=== PATIENT | female | born 1955 | race Caucasian/White ===

== ENCOUNTER → 2019-08-20 14:48 | Outpatient (BNVA) | payer SELFPAY | PROVIDERS: Family Provider Nurse Practitioner Family; PCP Nurse Practitioner Family; Visit Provider Nurse Practitioner Family | DX: R68.89 Other general symptoms and signs (principal); R10.819 Abdominal tenderness, unspecified site; R69 Illness, unspecified; R82.998 Other abnormal findings in urine | CPT/HCPCS: 80053; 81001; 85025; 87086; 87804 ==

== ENCOUNTER 2019-08-23 16:48 | Emergency (ER) | payer SELFPAY ==
[2019-08-23 17:12] VITALS: BP 163/94; PULSE 92; RESP 18; TEMP 37; O2SAT 96; BMI 36.0
--- NOTE | 2019-08-23 17:33 | ED_ITS ---
HPI - General Adult General: Chief complaint: General Medical Stated complaint: flu like symptoms Time Seen by Provider: 08/23/19 17:25 History of Present Illness: HPI narrative: Patient comes in complaining of diarrhea feeling dehydrated and that his symptoms got worse since she got started on Tamiflu. complaint: ge Onset (ago): day(s) Associated symptoms: Reports fevers/chills and vomiting; Deny chest pain, dyspnea, headache(s) or rash Review of Systems Const: Denies: fever, chills or body aches Eyes: Denies: change in vision or blurry vision ENMT: Denies: throat pain or nasal congestion Card: Denies: chest pain or shortness of breath on exertion Resp: Denies: shortness of breath, productive cough or non-productive cough GI: Reports: vomiting and diarrhea Musc: Denies: extremity pain Skin/Breast: Denies: rash Neuro: Denies: headache Psych: Denies: anxiety or depression Pardeep/Lymph: Denies: easy bruising PFSH ED PFSH: Family History (Updated 08/20/19 @ 14:59 by Silvia Vogt LPN) Other Cancer Heart disease Hypertension Social History (Updated 08/20/19 @ 14:43 by Silvia Vogt LPN) Smoking and tobacco status: never smoked Alcohol intake: never Housing: House Marital status: Number of children: 2 Highest education level completed: High School Graduate service: No Current occupational status: employed Current occupation: [employer] History of recent travel: No Physical Exam Const: COMMON NORMALS: no apparent distress, average body habitus and oriented x3 HENMT: COMMON NORMALS: normocephalic HEAD & SCALP: normal to inspection and normocephalic FACE & SINUS: normal facial exam Eye: COMMON NORMALS: conjunctivae normal GENERAL EYE: normal appearance of both eyes CONJUNCTIVA: Yes conjunctivae normal Neck/C-Spine: COMMON NORMALS: no JVD Chest: COMMONS NORMALS: inspection of chest normal Resp: COMMON NORMALS: normal respiratory effort and clear to auscultation bilaterally AUSCULTATION: clear to auscultation bilaterally Cardio: COMMON NORMALS: no JVD, regular rate and regular rhythm RATE: regular rate RHYTHM: regular rhythm GI: COMMON NORMALS: normal to inspection, nondistended, normoactive bowel sounds Extremity: COMMON NORMALS: normal to inspection and full ROM Neuro: COMMON NORMALS: oriented x3 Course Vital Signs: Vital signs: Vital Signs Temperature 98.6 F 08/23/19 17:12 Pulse Rate 92 08/23/19 17:12 Respiratory Rate 18 08/23/19 17:12 Blood Pressure 163/94 08/23/19 17:12 Pulse Oximetry 96 08/23/19 17:12 Discharge Plan Discharge Prescriptions: No Action citalopram 20 mg tablet 20 mg PO DAILY RF: 0 lovastatin 20 mg tablet 20 mg PO DAILY RF: 0 metoprolol tartrate 25 mg tablet 25 mg PO BID RF: 0 oseltamivir [Tamiflu] 75 mg capsule 75 mg PO BID 5 Days Qty: 10 RF: 0 Coding Level of Care Code ED Healthcare Management for Christopher Tadeo
--- NOTE | 2019-08-23 17:40 | PC.NURSE ---
pt given cool towell. pt room hot.
[2019-08-23 17:48] LABS: Basophils % 0.6 %; Eosinophils # 0.1 10^3/uL (0.0-0.8); Eosinophils % 1.9 %; Hematocrit 44.5 % (37.0-47.0); Hemoglobin 14.8 g/dL (11.5-15.3); Lymphocytes # 1.2 10^3/uL (0.8-4.8); Lymphocytes % 24.9 %; Mean Corpuscular HGB Conc 33.3 g/dL (30.0-36.0); Mean Corpuscular Hemoglobin 28.8 pg (28.0-34.0); Mean Corpuscular Volume 86.7 fL (81-99); Mean Platelet Volume 10.4 fL (7.4-10.4); Monocytes # 0.6 10^3/uL (0.2-0.9); Monocytes % 13.5 %; Neutrophils # 2.7 10^3/uL (1.8-7.7); Neutrophils % 58.9 %; Nucleated Red Blood Cells % 0 %; Platelet Count 213 10^3/cmm (130-400); Red Blood Count 5.13 10^6/uL (4.1-5.3); Red Cell Distribution Width 12.9 % (12.1-15.1); White Blood Count 4.7 10^3/uL (4.0-10.0)
[2019-08-23] MEDS: lactated ringers 500 ML 999 ML IV (18:00)
[2019-08-23 18:02] LABS: Alanine Aminotransferase 27 U/L (0-33); Albumin Level 4.4 g/dL (3.5-5.2); Alkaline Phosphatase 86 IU/L (35-105); Anion Gap 17.7 (5-19); Aspartate Amino Transferase 37 U/L (0-32); Blood Urea Nitrogen 24 mg/dL (8-23); Calcium 9.9 mg/dL (8.5-10.5); Carbon Dioxide 20 mmol/L (22-29); Chloride 102 mmol/L (98-107); Globulin 3.6 g/dL (1.3-4.6); Glomerular Filtration Rate 72.4 mL/min (90-130); Glucose 120 mg/dL (65-115); Lipase 131 U/L (13-60); Potassium 3.7 mmol/L (3.5-5.1); Sodium 136 mmol/L (136-145); Total Bilirubin 0.3 mg/dL (0.15-1.2)
[2019-08-23] MEDS: ondansetron 2 mg/ML SDV 2 mL 4 MG IVP (18:12)
[2019-08-23 18:51] LABS: Add Urine Microscopic? YES; Bilirubin Urine 1+ (NEGATIVE); Blood Urine 2+ (Negative); Glucose Urine UA Norm (Normal); Ketones Urine Negative (Negative); Leukocyte Esterase Urine Trace (Negative); Nitrate Urine Negative (Negative); Protein Urine 1+ (Negative); Specific Gravity, Urine 1.015 (1.005-1.030); Urine Appearance Hazy (CLEAR); Urine Color Yellow (Yellow); Urobilinogen Urine Norm (Negative); pH Urine 5 (5-7)
--- NOTE | 2019-08-23 18:51 | CTR_ITS ---
PROCEDURE INFORMATION: Exam: CT Abdomen And Pelvis With Contrast Exam date and time: 08/23/2019 6:55 PM Age: 64 years old Clinical indication: Nausea and vomiting; Abdominal pain; Generalized; Additional info: Diarrhea, high lipase TECHNIQUE: Imaging protocol: Computed tomography of the abdomen and pelvis with intravenous contrast. Total DLP: 1495.21 mGy-cm Radiation optimization: All CT scans at this facility use at least one of these dose optimization techniques: automated exposure control; mA and/or kV adjustment per patient size (includes targeted exams where dose is matched to clinical indication); or iterative reconstruction. Contrast material: OMNI 300; Contrast volume: 95 ml; Contrast route: IV; COMPARISON: CT [place]domen/[place] o [id number] 02/09/2013 3:03 PM FINDINGS: Mediastinum: Hiatal hernia with fluid filled thoracic esophagus. Liver: Normal. No mass. Gallbladder and bile ducts: Normal. No calcified stones. No ductal dilation. Pancreas: Normal. No ductal dilation. Spleen: Normal. No splenomegaly. Adrenals: Normal. No mass. Kidneys and ureters: Normal. No hydronephrosis. Stomach and bowel: Stomach is otherwise unremarkable. Duodenal diverticulum. Scattered fluid throughout the small bowel small non differential air-fluid levels. No obstruction. Multiple air-fluid levels in the proximal colon. No visible wall thickening. Diverticulosis of the distal colon. Appendix: The appendix is normal. Intraperitoneal space: Unremarkable. No free air. No significant fluid collection. Vasculature: Unremarkable. No abdominal aortic aneurysm. Lymph nodes: Unremarkable. No enlarged lymph nodes. Bladder: Unremarkable as visualized. Reproductive: Unremarkable as visualized. Bones/joints: Degenerative changes at L5-S1. No compression fracture. Soft tissues: Fat containing umbilical hernia. Fat containing right paraumbilical hernia. CT/CT abdomen pelvis w con* [id number] IMPRESSION: 1. Scattered air-fluid levels in the small bowel and proximal colon most likely represents enterocolitis. 2. Hiatal hernia with fluid-filled esophagus. This could represent stasis versus reflux. 3. Diverticulosis of the distal colon. Radiation Dose CTDIVOL = (mGy): DLP = 1495.21 (mGy-cm)
[2019-08-23 18:53] LABS: Bacteria Urine 2+; Mucus Urine 2+; RBC Urine 15-25 /hpf (0-2)
[2019-08-23 18:54] LABS: Add Urine Culture? Yes
[2019-08-23] MEDS: iohexol 300 mg/mL 100 mL Btl IV (18:57)
[2019-08-23] MEDS: metroNIDAZOLE 500 MG Tablet PO (19:15)
[2019-08-23] MEDS: loperamide 2 mg Capsule 4 MG PO (19:15)
[2019-08-23] MEDS: sodium chloride 0.9% 1,000 ML 999 ML IV (19:44)
[2019-08-23 20:26] VITALS: BP 148/96; PULSE 68; RESP 18; O2SAT 92
== END 2019-08-23 20:38 | disposition home or self-care (01) ==
PROVIDERS: Emergency Provider Nurse Practitioner Family; Family Provider Nurse Practitioner Family; PCP Nurse Practitioner Family
DX: R19.7 Diarrhea, unspecified (principal); R50.9 Fever, unspecified; R11.10 Vomiting, unspecified; I11.9 Hypertensive heart disease without heart failure
CPT/HCPCS: 74177; 80053; 81001; 83690; 85025; 87086; 96365; 96375; 99282; 99283; A9270; J2405; J7030; Q9967

== ENCOUNTER 2019-08-28 11:35 | Emergency (ER) | payer SELFPAY ==
[2019-08-28 12:05] VITALS: BP 139/89; PULSE 76; RESP 18; TEMP 36.7; O2SAT 97; BMI 37.8
[2019-08-28 12:10] LABS: Basophils % 0.4 %; Eosinophils # 0.2 10^3/uL (0.0-0.8); Eosinophils % 2.5 %; Hematocrit 43.3 % (37.0-47.0); Hemoglobin 14.2 g/dL (11.5-15.3); Lymphocytes # 1.9 10^3/uL (0.8-4.8); Lymphocytes % 22.9 %; Mean Corpuscular HGB Conc 32.8 g/dL (30.0-36.0); Mean Corpuscular Hemoglobin 28.2 pg (28.0-34.0); Mean Corpuscular Volume 85.9 fL (81-99); Mean Platelet Volume 10.2 fL (7.4-10.4); Monocytes # 0.7 10^3/uL (0.2-0.9); Monocytes % 8.3 %; Neutrophils # 5.3 10^3/uL (1.8-7.7); Neutrophils % 65.4 %; Nucleated Red Blood Cells % 0 %; Platelet Count 309 10^3/cmm (130-400); Red Blood Count 5.04 10^6/uL (4.1-5.3); Red Cell Distribution Width 12.7 % (12.1-15.1); White Blood Count 8.1 10^3/uL (4.0-10.0)
[2019-08-28 12:26] LABS: Alanine Aminotransferase 23 U/L (0-33); Albumin Level 3.9 g/dL (3.5-5.2); Alkaline Phosphatase 91 IU/L (35-105); Anion Gap 15.4 (5-19); Aspartate Amino Transferase 18 U/L (0-32); Blood Urea Nitrogen 9 mg/dL (8-23); Calcium 9.5 mg/dL (8.5-10.5); Carbon Dioxide 22 mmol/L (22-29); Chloride 103 mmol/L (98-107); Globulin 3.9 g/dL (1.3-4.6); Glucose 97 mg/dL (65-115); Lipase 39 U/L (13-60); Potassium 3.4 mmol/L (3.5-5.1); Sodium 137 mmol/L (136-145); Total Bilirubin 0.5 mg/dL (0.15-1.2); Total Protein 7.8 g/dL (6.6-8.7)
[2019-08-28 13:59] VITALS: RESP 18
[2019-08-28 14:10] VITALS: RESP 17
--- NOTE | 2019-08-28 14:15 | CT_ITS ---
WS: [id number] CT ABDOMEN PELVIS TECHNIQUE: Contrast-enhanced CT of the abdomen and pelvis with coronal and sagittal reformatted image s. CLINICAL INFORMATION: pain; diarrhea/vomiting COMPARISON: August 23, 2019 DLP: 1458.[address] scans at [facility] use at least one of these dose optimization techniques: automat ed exposure control; mA and/or kV adjustment per patient size (includes targeted exams where dose is matched to clinical indication); or iterative reconstruction. FINDINGS: Images in the midabdomen are degraded due to motion/breathing artifact. Since the prior examination i nterval development of thickening and inflammatory stranding involving the sigmoid colon consistent w ith acute diverticulitis. Associated mucosal enhancement. No drainable abscess or fluid collection. Remainder of the colon normal in appearance considering motion artifact. Scattered fluid in the julián l caliber small bowel. No evidence of high-grade obstruction. Previously described enteritis is impro jigar. Normal liver. Normal portal vein and splenic vein. Slightly prominent and otherwise unremarkable gall bladder. Small esophageal hiatal hernia. Normal spleen. Fatty atrophy of the pancreas. Small splenule . Fat-containing umbilical hernia. Lung bases are well aerated. Notified JENISE Gomez at 08/28/2019 4:[address]/CT abdomen pelvis w con* [id number] IMPRESSION: 1. Since the prior examination, interval development of acute uncomplicated si gmoid diverticulitis with inflammatory stranding and edema. No drainable absces s or fluid collection. 2. No evidence of small or large bowel obstruction. 3. Scattered fluid in normal caliber small bowel. Previously described enterit is as improved. 4. Small esophageal hiatal hernia. 5. Slightly hydropic gallbladder which is otherwise normal in appearance. 6. No hydronephrosis. Mild renal cortical atrophy. 7. Fat-containing umbilical hernia.
--- NOTE | 2019-08-28 14:18 | W.ED.NAVMDI ---
HPI - Nausea/Vomiting/Diarrhea General: Chief complaint: General Medical Stated complaint: N/V/D Time Seen by Provider: 08/28/19 13:52 Source: patient Mode of arrival: ambulatory Limitations: no limitations History of Present Illness: HPI Narrative: Patient is a 64-year-old female who presents to ED today with complaints of continued vomiting and diarrhea. Patient states she has had symptoms for approximately a week and a half now. She is complaining of approximately 15 watery stools daily as well as several episodes of vomiting. Patient has been seen twice for this already. She has not been running fevers. MD elicited complaint: nausea, vomiting, diarrhea and abdominal pain Description of vomiting: watery Description of diarrhea: watery Associated nausea: Yes Associated abdominal pain: Yes Location of pain: Diffuse Radiation: diffuse Pain consistency: constant Quality: cramping Exacerbating factors: eating Relieving factors: none Associated symtoms: Reports no associated symptoms and nausea; Denies chest pain, dysuria, headache(s) or syncope Review of Systems Const: Denies: fever, chills or body aches Card: Denies: chest pain, edema, lightheadedness, syncope or pre-syncope Resp: Denies: shortness of breath, productive cough, coughing up blood or chest congestion GI: Reports: abdominal pain, nausea, vomiting and diarrhea; Denies: vomiting blood, coffee grounds in vomit, heartburn/indigestion, painful bowel movements, rectal swelling, blood in stool, black tarry stool, white/light colored stool or fatty stool : Denies: flank pain, difficulty urinating, painful urination, urinary frequency or urinary urgency Musc: Denies: neck pain or back pain Skin/Breast: Denies: rash Neuro: Denies: headache, numbness in extremities, weakness in extremities or changes in sensation PFSH ED PFSH: Family History (Updated 08/20/19 @ 14:59 by Silvia Vogt LPN) Other Cancer Heart disease Hypertension Social History (Updated 08/20/19 @ 14:43 by Silvia Vogt LPN) Smoking and tobacco status: never smoked Alcohol intake: never Housing: House Marital status: Number of children: 2 Highest education level completed: High School Graduate service: No Current occupational status: employed Current occupation: [employer] History of recent travel: No Physical Exam Const: COMMON NORMALS: no apparent distress, oriented x3, no limitations, alert and well nourished NUTRITIONAL APPEARANCE: obese Resp: COMMON NORMALS: normal respiratory effort and clear to auscultation bilaterally AUSCULTATION: clear to auscultation bilaterally Cardio: COMMON NORMALS: regular rate and regular rhythm RATE: regular rate RHYTHM: regular rhythm GI: COMMON NORMALS: normal to inspection, nondistended, normoactive bowel sounds, soft to palpation, no hepatosplenomegaly and no masses PALPATION: Yes soft, Yes tender (mild diffusely ) and Yes no hepatosplenomegaly : COMMON NORMALS: Yes no CVA tenderness BLADDER/KIDNEY EXAM: Yes no CVA tenderness Back/Pelvis: COMMON NORMALS: no CVA tenderness Extremity: COMMON NORMALS: normal to inspection Neuro: COMMON NORMALS: oriented x3 SENSORIUM/ORIENTATION: Yes alert Skin: COMMON NORMALS: no rashes or lesions noted GENERAL SKIN EXAM: no rashes or lesions noted Course Vital Signs: Vital signs: Vital Signs Temperature 98.1 F 08/28/19 12:05 Pulse Rate 76 08/28/19 12:05 Respiratory Rate 17 08/28/19 14:10 Blood Pressure 139/89 08/28/19 12:05 Pulse Oximetry 97 08/28/19 12:05 MDM - Nausea/Vomiting/Diarrhea MDM Narrative: Medical decision making narrative: Patient clinically appears well. Labs at this time are non-concerning. She has very mild hypokalemia at 3.4-this was replaced with some oral potassium here. Patient is not hypotensive, tachycardic, or febrile. Stool samples were obtained here however the analyzer has been down for the past several hours and lab was contacted who does not feel this will be repaired in the next few hours so these will have to be followed up as an outpatient. CT scan today shows sigmoid diverticulitis-uncomplicated. Patient states she was prescribed Cipro and Flagyl upon her last visit but reports she has vomited 1-2 doses of this. She was not discharged with anything for nausea at home. Patient will be given IV doses of Cipro and Flagyl here. I will write her for another 5 days of these medications at home. Recommend she treat with Zofran prior to medication administration. She will need to return to the emergency department in 48 hours if she is still not able to hold down medications and or if pain is worsening. Lab Data: Labs: Lab Results 08/28/19 08/28/19 Range/Units 12:03 12:03 WBC 8.1 (4.0-10.0) 10^3/ uL RBC 5.04 (4.1-5.3) 10^6/u L Hgb 14.2 (11.5-15.3) g/dL Hct 43.3 (37.0-47.0) % MCV 85.9 (81-99) fL MCH 28.2 (28.0-34.0) pg MCHC 32.8 (30.0-36.0) g/dL RDW 12.7 (12.1-15.1) % Plt Count 309 (130-400) 10^3/c mm MPV 10.2 (7.4-10.4) fL Neut % (Auto) 65.4 % Lymph % (Auto) 22.9 % Mobile % (Auto) 8.3 % Eos % (Auto) 2.5 % Baso % (Auto) 0.4 % Neut # (Auto) 5.3 (1.8-7.7) 10^3/u L Lymph # (Auto) 1.9 (0.8-4.8) 10^3/u L Mobile # (Auto) 0.7 (0.2-0.9) 10^3/u L Eos # (Auto) 0.2 (0.0-0.8) 10^3/u L Baso # (Auto) 0.0 (0.0-0.1) 10^3/u L Nucleated RBC % (a uto) 0 % Nucleated RBCs # 0.0 /100WBC Sodium 137 (136-145) mmol/L Potassium 3.4 L (3.5-5.1) mmol/L Chloride 103 (98-107) mmol/L Carbon Dioxide 22 (22-29) mmol/L Anion Gap 15.4 (5-19) BUN 9 (8-23) mg/dL Creatinine 0.6 (0.5-0.9) mg/dL GFR Calculation 101.0 (90-130) mL/min Glucose 97 (65-115) mg/dL Calcium 9.5 (8.5-10.5) mg/dL Total Bilirubin 0.5 (0.15-1.2) mg/dL AST 18 (0-32) U/L ALT 23 (0-33) U/L Alkaline Phosphata se 91 (35-105) IU/L Total Protein 7.8 (6.6-8.7) g/dL Albumin 3.9 (3.5-5.2) g/dL Globulin 3.9 (1.3-4.6) g/dL Lipase 39 (13-60) U/L Imaging Data^: CT Abd/Pel: Radiologist's impression: [address] [place] [address] CT Scan Report Signed Patient: Norma Albright Unit #: [id number] : 1955 Age/Sex: 64 / F ADM Date: 08/28/19 Loc: ER Room/Bed: Attending Dr: Ordering Provider/Ordering MD: Virginia Kemp Date of Service: 08/28/19 Procedure(s): CT abdomen pelvis w con* [id number] Accession Number(s): [id number] Report Number: [id number] WS: [id number] CT ABDOMEN PELVIS TECHNIQUE: Contrast-enhanced CT of the abdomen and pelvis with coronal and sagittal reformatted images. CLINICAL INFORMATION: pain; diarrhea/vomiting COMPARISON: August 23, 2019 DLP: 1458.[address] scans at [facility] use at least one of these dose optimization techniques: automated exposure control; mA and/or kV adjustment per patient size (includes targeted exams where dose is matched to clinical indication); or iterative reconstruction. FINDINGS: Images in the midabdomen are degraded due to motion/breathing artifact. Since the prior examination interval development of thickening and inflammatory stranding involving the sigmoid colon consistent with acute diverticulitis. Associated mucosal enhancement. No drainable abscess or fluid collection. Remainder of the colon normal in appearance considering motion artifact. Scattered fluid in the normal caliber small bowel. No evidence of high-grade obstruction. Previously described enteritis is improved. Normal liver. Normal portal vein and splenic vein. Slightly prominent and otherwise unremarkable gallbladder. Small esophageal hiatal hernia. Normal spleen. Fatty atrophy of the pancreas. Small splenule. Fat-containing umbilical hernia. Lung bases are well aerated. Notified JENISE Gomez at 08/28/2019 4:[address]/CT abdomen pelvis w con* [id number] IMPRESSION: 1. Since the prior examination, interval development of acute uncomplicated sigmoid diverticulitis with inflammatory stranding and edema. No drainable abscess or fluid collection. 2. No evidence of small or large bowel obstruction. 3. Scattered fluid in normal caliber small bowel. Previously described enteritis as improved. 4. Small esophageal hiatal hernia. 5. Slightly hydropic gallbladder which is otherwise normal in appearance. 6. No hydronephrosis. Mild renal cortical atrophy. 7. Fat-containing umbilical hernia. Dictated By: Anand Burrell MD Signed By: Anand Burrell MD Signed Date/Time: 08/28/191626 DD/ 07 Discharge Plan Discharge Patient Disposition: Home, Self-Care Clinical Impression: Diverticulitis of sigmoid colon Condition: Stable Prescriptions: New Zofran 4 mg tablet 4 mg PO Q6H PRN (Reason: nausea and vomiting) Qty: 14 RF: 0 Continued Flagyl 500 mg tablet 500 mg PO BID 7 Days Qty: 10 RF: 0 ciprofloxacin HCl 500 mg tablet 500 mg PO BID Qty: 10 RF: 0 No Action citalopram 20 mg tablet 30 mg PO DAILY RF: 0 lovastatin 20 mg tablet 20 mg PO DAILY RF: 0 metoprolol tartrate 25 mg tablet 25 mg PO BID 30 Days Qty: 60 RF: 0 acetaminophen [Tylenol Extra Strength] 500 mg Tablet 500 mg PO Q6H PRN (Reason: Pain) RF: 0 ibuprofen 200 mg Tablet 200 - 800 mg PO PRN PRN (Reason: Pain) RF: 0 Discharge Orders: Discharge Order (Routine); Ordered 08/28/19 Ordered By: Virginia Kemp Referrals: Carina Rome FNP-C [Primary Care Provider] - Discharge Diet: Advance as tolerated Patient Instructions: Diverticulitis Activity Restrictions/Additional Instructions: As discussed try taking your Zofran 15 to 20 minutes prior to taking your antibiotics. You need to contact medical records or primary care tomorrow to try to get results of your stool cultures as our analyzer was down today and results are delayed. You need to return to the emergency department immediately for worsening pain, fevers greater than 100.4, or inability to hold down your antibiotics. Coding Level of Care Code ED Property Caretaker for Chg Fwd Exam Detailed
[2019-08-28] MEDS: sodium chloride 0.9% 1,000 ML 999 ML IV (14:25)
[2019-08-28] MEDS: iohexol 300 mg/mL 100 mL Btl IV (15:26)
[2019-08-28] MEDS: ciprofloxacin 400 MG/200 ML PREMIX 200 MG IV (16:58)
[2019-08-28] MEDS: ondansetron 2 mg/ML SDV 2 mL 4 MG IVP (17:19)
[2019-08-28] MEDS: metroNIDAZOLE IV 500 MG/100 ML PREMIX 100 MG IV (18:00)
[2019-08-28 19:13] VITALS: BP 145/98; PULSE 94; RESP 16; TEMP 37; O2SAT 96
--- NOTE | 2019-08-29 13:44 | PC.NURSE ---
Critical Lab, patient had a stool sample positive for cryptosporidium, Dr. Mayela HURD and advised no treatment necessary.
== END 2019-08-28 19:15 | disposition home or self-care (01) ==
PROVIDERS: Emergency Medicine; Emergency Provider Physician Assistant; Family Provider Nurse Practitioner Family; PCP Nurse Practitioner Family
DX: K57.32 Diverticulitis of large intestine without perforation or abscess without bleeding (principal); E87.6 Hypokalemia
CPT/HCPCS: 36415; 74177; 80053; 82274; 83630; 83690; 85025; 87493; 87505; 96365; 96368; 96374; 99283; 99284; J0744; J2405; J7030; Q9967; S0030

== ENCOUNTER → 2019-09-09 09:52 | Outpatient (BNVA) | payer SELFPAY | PROVIDERS: Family Provider Nurse Practitioner Family; PCP Nurse Practitioner Family; Visit Provider Nurse Practitioner Family | DX: R73.09 Other abnormal glucose (principal); N39.0 Urinary tract infection, site not specified | CPT/HCPCS: 81003; 83036 ==

== ENCOUNTER → 2019-09-10 11:32 | Outpatient (BNVA) | payer SELFPAY | PROVIDERS: Family Provider Nurse Practitioner Family; PCP Nurse Practitioner Family; Visit Provider Nurse Practitioner Family | DX: R07.89 Other chest pain (principal); A07.2 Cryptosporidiosis; A49.8 Other bacterial infections of unspecified site | CPT/HCPCS: 71046; 80053; 85025 ==

== ENCOUNTER → 2019-09-11 10:27 | Outpatient (BNVA) | payer SELFPAY | PROVIDERS: Family Provider Nurse Practitioner Family; PCP Nurse Practitioner Family; Visit Provider Nurse Practitioner Family | DX: A07.2 Cryptosporidiosis (principal); A49.8 Other bacterial infections of unspecified site | CPT/HCPCS: 87505 ==

== ENCOUNTER → 2019-12-11 14:39 | Outpatient (BNVA) | payer SELFPAY | PROVIDERS: Family Provider Nurse Practitioner Family; PCP Nurse Practitioner Family; Visit Provider Nurse Practitioner Family | DX: I10 Essential (primary) hypertension (principal); E78.5 Hyperlipidemia, unspecified; F41.9 Anxiety disorder, unspecified | CPT/HCPCS: 80053; 80061; 84443; 85025 ==

== ENCOUNTER → 2020-06-08 09:06 | Outpatient (BNVA) | payer SELFPAY | PROVIDERS: Family Provider Nurse Practitioner Family; PCP Nurse Practitioner Family; Visit Provider Nurse Practitioner Family | DX: I10 Essential (primary) hypertension (principal); R25.1 Tremor, unspecified; R73.9 Hyperglycemia, unspecified; E78.5 Hyperlipidemia, unspecified; Z23 Encounter for immunization; F41.9 Anxiety disorder, unspecified | CPT/HCPCS: 36416; 80053; 80061; 82962; 83036; 84443; 85025 ==

== ENCOUNTER → 2020-12-27 11:53 | Outpatient (BNVA) | payer SELFPAY | PROVIDERS: Family Provider Nurse Practitioner Family; PCP Nurse Practitioner Family; Visit Provider Nurse Practitioner Family | DX: I10 Essential (primary) hypertension (principal); E78.5 Hyperlipidemia, unspecified; K04.7 Periapical abscess without sinus; F41.9 Anxiety disorder, unspecified | CPT/HCPCS: 80053; 80061; 84443; 85025 ==

== ENCOUNTER → 2021-04-13 14:58 | Outpatient (BNVA) | payer MEDICARE, SELFPAY | PROVIDERS: Family Provider Nurse Practitioner Family; PCP Nurse Practitioner Family; Visit Provider Nurse Practitioner Family | DX: I10 Essential (primary) hypertension (principal); E78.5 Hyperlipidemia, unspecified; F41.9 Anxiety disorder, unspecified | CPT/HCPCS: 80053; 80061; 84443; 85025 ==

== ENCOUNTER → 2021-10-24 15:42 | Outpatient (BNVA) | payer MEDICARE, SELFPAY | PROVIDERS: Family Provider Nurse Practitioner Family; PCP Nurse Practitioner Family; Visit Provider Nurse Practitioner Family | DX: I10 Essential (primary) hypertension (principal); F41.9 Anxiety disorder, unspecified; E78.5 Hyperlipidemia, unspecified | CPT/HCPCS: 80053; 80061; 84443; 85025 ==

== ENCOUNTER → 2022-04-13 15:22 | Outpatient (BNVA) | payer MEDICARE, SELFPAY | PROVIDERS: Family Provider Nurse Practitioner Family; PCP Nurse Practitioner Family; Visit Provider Nurse Practitioner Family | DX: Z12.39 Encounter for other screening for malignant neoplasm of breast (principal); I10 Essential (primary) hypertension; F41.9 Anxiety disorder, unspecified; E78.5 Hyperlipidemia, unspecified | CPT/HCPCS: 80053; 80061; 84443; 85025 ==

== ENCOUNTER → 2022-05-10 14:51 | Outpatient (BNVA) | payer MEDICARE, SELFPAY | PROVIDERS: Family Provider Nurse Practitioner Family; PCP Nurse Practitioner Family; Visit Provider Nurse Practitioner Family | DX: Z20.822 Contact with and (suspected) exposure to COVID-19 (principal); J06.9 Acute upper respiratory infection, unspecified | CPT/HCPCS: 87426 ==

== ENCOUNTER 2022-05-26 09:23 | Outpatient (CLI) | payer MEDICARE, SELFPAY ==
--- NOTE | 2022-05-26 09:34 | MM_ITS ---
WS: [id number] VIEWS: MLO and CC views both breasts. 3D digital tomosynthesis is also included in this exam. Comparison made with prior exam of 04/08/2012, 04/10/2013, 11/27/2014,. Findings: There was no sign of mass, architectural distortion or suspicious calcification in either breast. Sc attered fibroglandular densities MM/[place] [id number] Impression: BI-RADS: 2-Benign FOLLOW-UP: 1 Year Follow-up This mammogram was also analyzed by the Computer Aided Detection System R2 Imag e Record [employer].
== END 2022-05-26 09:24 | disposition home or self-care (01) ==
LOC: RAD 09:24
PROVIDERS: PCP Nurse Practitioner Family; Visit Provider Nurse Practitioner Family
DX: Z12.31 Encounter for screening mammogram for malignant neoplasm of breast (principal)
CPT/HCPCS: 77063; 77067

== ENCOUNTER → 2022-08-24 15:20 | Outpatient (BNVA) | payer MEDICARE, SELFPAY | PROVIDERS: PCP Nurse Practitioner Family; Visit Provider Nurse Practitioner Family | DX: I10 Essential (primary) hypertension (principal); F41.9 Anxiety disorder, unspecified; E78.5 Hyperlipidemia, unspecified | CPT/HCPCS: 80053; 80061; 84443; 85025 ==

== ENCOUNTER → 2022-12-01 09:33 | Outpatient (BNVA) | payer MEDICARE, SELFPAY | PROVIDERS: PCP Nurse Practitioner Family; Visit Provider Nurse Practitioner Family | DX: R21 Rash and other nonspecific skin eruption (principal); Z91.89 Other specified personal risk factors, not elsewhere classified | CPT/HCPCS: 86618; 86666; 86757 ==

== ENCOUNTER → 2023-05-25 10:39 | Outpatient (BNVA) | payer MEDICARE, SELFPAY | PROVIDERS: PCP Nurse Practitioner Family; Visit Provider Nurse Practitioner Family | DX: E78.5 Hyperlipidemia, unspecified (principal); F41.9 Anxiety disorder, unspecified; I10 Essential (primary) hypertension; Z12.31 Encounter for screening mammogram for malignant neoplasm of breast | CPT/HCPCS: 80053; 80061; 84443; 85025 ==

== ENCOUNTER 2023-06-19 14:43 | Outpatient (CLI) | payer MEDICARE, SELFPAY ==
--- NOTE | 2023-06-19 15:00 | MM_ITS ---
WS: [id number] BILATERAL 3D TOMOSYNTHESIS DIGITAL SCREENING MAMMOGRAPHY WITH CAD CLINICAL INFORMATION: Z12.39 - Encounter for other screening for malignant neop... HISTORY: Screening mammogram. No current complaints. COMPARISON: 2021 TECHNIQUE: Bilateral CC and MLO views. FINDINGS: The breasts are composed of heterogeneous fibroglandular density tissue, which can limit the detectio n of small underlying mass lesions. No suspicious mass, asymmetry, calcifications, or architectural d istortion. No evidence of malignancy. IMPRESSION: MM/[place] [id number] BI-RADS: 1-Negative FOLLOW UP: 1 Year Follow-up Recommend return to annual screening mammography.
== END 2023-06-19 14:44 | disposition home or self-care (01) ==
LOC: MOBLMAM 14:47
PROVIDERS: PCP Nurse Practitioner Family; Visit Provider Nurse Practitioner Family
DX: Z12.31 Encounter for screening mammogram for malignant neoplasm of breast (principal)
CPT/HCPCS: 77063; 77067

== ENCOUNTER → 2024-05-15 11:34 | Outpatient (BNVA) | payer MEDICARE, SELFPAY | PROVIDERS: PCP Nurse Practitioner Family; Visit Provider Nurse Practitioner Family | DX: I10 Essential (primary) hypertension (principal); E78.5 Hyperlipidemia, unspecified | CPT/HCPCS: 80053; 80061; 84443; 85025 ==

== ENCOUNTER 2024-06-20 08:36 | Outpatient (CLI) | payer MEDICARE, SELFPAY ==
--- NOTE | 2024-06-20 09:00 | MM_ITS ---
WS: [id number] VIEWS: MLO and CC views both breasts. 3D digital tomosynthesis is also included in this exam. Comparison made with prior exam of 04/08/2012, 04/10/2013, 11/27/2014, , 05/26/2022, 06/19/2023.. Findings: The breasts are heterogeneously dense, which may obscure small masses. No sign of mass, tumor calcification or architectural distortion. Nodular densities in both breasts a re stable in appearance. MM/MM scr BI tomosynthesis [id number] Impression: BI-RADS: 2 - Benign FOLLOW-UP: 1 Year Follow-up This mammogram was also analyzed by the Computer Aided Detection System R2 Imag e Second Mate.
== END 2024-06-20 08:37 | disposition home or self-care (01) ==
LOC: RAD 08:36
PROVIDERS: PCP Nurse Practitioner Family; Visit Provider Nurse Practitioner Family
DX: Z12.31 Encounter for screening mammogram for malignant neoplasm of breast (principal); R92.333 Mammographic heterogeneous density, bilateral breasts
CPT/HCPCS: 77063; 77067

== ENCOUNTER → 2024-12-31 12:47 | Outpatient (BNVA) | payer BC, SELFPAY | PROVIDERS: PCP Nurse Practitioner Family; Visit Provider Nurse Practitioner Family | DX: I10 Essential (primary) hypertension (principal); E78.5 Hyperlipidemia, unspecified; F41.9 Anxiety disorder, unspecified | CPT/HCPCS: 80053; 80061; 82306; 82607; 84443; 85025 ==

== ENCOUNTER → 2025-04-21 12:25 | Outpatient (BNVA) | payer BC, SELFPAY | PROVIDERS: PCP Nurse Practitioner Family; Visit Provider Nurse Practitioner Family | DX: I10 Essential (primary) hypertension (principal) | CPT/HCPCS: 80053; 80061; 82306; 83036; 84443; 85025 ==